=== PATIENT | female | born 1970 | race Caucasian/White ===

== ENCOUNTER → 2019-05-28 | Outpatient (CLI) | payer OTHER ==
--- NOTE | 2019-05-28 17:50 | XCELERA REPORT ---
[address] [address] Transthoracic Echocardiogram Report Name: NEETU ELLIS Age: 49 yrs Gender: Female : 1970 Patient Status: Outpatient Patient Location: RAD Study Date: 05/28/2019 01:23 PM Height: 67 in Weight: 170 lb BSA: 1.9 m2 Reason For Study: HTN Ordering Physician: LUBNA JARA Performed By: Alexis Gerber Interpretation Summary Technically suboptimal study due to breast implant. see above report on deficiencies. No hypertensive heart disease based on measurements. incomplete LV segmental analysis, if need for w/u CP, consider stress test bunny EKG or myocardial perfusion imaging No pulm hypertension. No MVP, and LVDD. MMode/2D Measurements & Calculations RVDd: 3.4 cm LVIDd: 4.5 cm FS: 36.6 % Ao root diam: 2.7 cm IVSd: 0.81 cm LVIDs: 2.9 cm EDV(Teich): 94.8 ml LVPWd: 0.80 cm ESV(Teich): 31.7 ml Ao root area: 5.7 cm2 LA dimension: 3.8 cm EF(Teich): 66.5 % Doppler Measurements & Calculations MV E max nolan: MV P1/2t max nolan: Ao V2 max: LV V1 max P.6 cm/sec 98.6 cm/sec 130.3 cm/sec 4.8 mmHg MV A max nolan: MV P1/2t: 83.6 msec Ao max P.8 mmHgLV V1 max: 112.0 cm/sec MVA(P1/2t): 2.6 cm2 109.1 cm/sec MV E/A: 0.94 MV dec slope: 345.4 cm/sec2 MV dec time: 0.23 sec PA V2 max: TR max nolan: MV P1/2t-pr_phl: 108.1 cm/sec 274.5 cm/sec 83.6 msec PA max P.7 mmHgTR max P.1 mmHg Left Ventricle The left ventricle is grossly normal size. There is normal left ventricular wall thickness. IVS/PW = 10/11 mm. The left ventricular ejection fraction is normal. poor Ap 2 chamber view, hence no Biplane LVEF done. Visual LVEF suggests normal LVEF., and TDI shuggests no LV diastolic dysfunction. Doppler measurements suggest normal left ventricular diastolic function. Regional wall motion abnormalities cannot be excluded due to limited visualization. basal lateral wall not assessed. There is no thrombus. Right Ventricle The right ventricle is normal in size, thickness and function. Atria The right atrium is normal. The left atrial size is normal. The interatrial septum is intact with no evidence for an atrial septal defect. Mitral Valve There is no mitral annular calcification. The mitral valve is grossly normal. There is no evidence of mitral valve prolapse. There is no mitral valve stenosis. There is no mitral regurgitation noted. Aortic Valve The aortic valve is trileaflet. The aortic valve opens well. Cannot exclude aortic valvular vegetation. There is no aortic valve stenosis. No aortic regurgitation is present. Tricuspid Valve The tricuspid is normal in structure and function. There is no tricuspid valve prolapse. There is no tricuspid stenosis. There is a mild amount of tricuspid regurgitation. RSVP is equal to 33. RA mean 3mm Hg. Pulmonic Valve The pulmonic valve is not well visualized. There is no pulmonic valvular regurgitation. Great Vessels The aortic root is normal size. Effusions There is no pericardial effusion. I WMSI = 1.00 % Normal = 100 Segments Size X - Cannot 2 - 4 - 1-2 small Interpret 1 - Normal Hypokinetic 3 - AkineticDyskinetic 3-5 moderate 5 - 6-14 large Aneurysmal 15-16 diffuse : LUBNA JARA, Mark
== END ==
LOC: RAD 12:29
PROVIDERS: ATTEND Nurse Practitioner Primary Care
DX: R03.0 Elevated blood-pressure reading, without diagnosis of hypertension (principal); I07.1 Rheumatic tricuspid insufficiency
CPT/HCPCS: 93306